=== PATIENT | male | born 1960 | race Caucasian/White ===

== ENCOUNTER 2016-08-09 19:48 | Inpatient (IN) | payer BC ==
[2016-08-09] MEDS ORDERED: methylPREDNISolone NA SUCC 125 MG/2 ML VIAL IVPB ONE (20:39)
--- NOTE | 2016-08-09 20:40 | PDOC ---
History of Present Illness - General History Source: Patient Exam Limitations: No Limitations - History of Present Illness Initial Comments: 08/09/16 20:52 The patient is a 56 year old male with significant past medical history of hypertension and hyperlipidemia who presents to the ED sent by Dr. Pedersen for admission. Patient reports he developed an abscess on the left forearm last week and was placed on bactrim, which he has finished. States going to the Urgent Care today for a sore throat, where he received amoxicillin and after taking the amoxicillin, he developed a diffuse rash. Subsequently, he went to Dr. Cheng office where he was then sent here for admission. States his rash progressively gotten better and he feels flushed. Denies SOB, throat tightness, tongue swelling, or mouth swelling. The patient denies fever, chills, cough, chest pain, and palpitations. The patient denies abdominal pain, nausea, vomiting, and diarrhea. Allergies: amoxicillin as reported today by patient Social History: No alcohol, tobacco, or drug use reported. Past Surgical History: None reported PCP: Dr. Samara Pedersen <Amalia Norwood - Last Filed: 08/09/16 21:54> - General History Source: Patient <VladislavAdria rodriguez - Last Filed: 08/09/16 21:57> - General Chief Complaint: Wound Infection Stated Complaint: PCP ADMIT/RASH Time Seen by Provider: 08/09/16 20:37 Past History <Amalia Norwood - Last Filed: 08/09/16 21:54> - Past Medical History HTN: Yes Hypercholesterolemia: Yes - Psycho/Social/Smoking Cessation Hx Anxiety: No Suicidal Ideation: No Smoking History: Never smoked Hx Alcohol Use: No Drug/Substance Use Hx: No Substance Use Type: None <Adria Valentin - Last Filed: 08/09/16 21:57> - Past Medical History Allergies/Adverse Reactions: Allergies Allergy/AdvReac Type Severity Reaction Status Date / Time No Known Allergies Allergy Verified 08/09/16 19:58 Home Medications: Ambulatory Orders Amoxicillin - [Amoxicillin 875mg Tablet -] 1 tab PO BID 08/09/16 Losartan/Hydrochlorothiazide [Losartan-Hctz 100-12.5 mg Tab] 1 each PO DAILY Rosuvastatin [Crestor -] 5 mg PO HS 08/09/16 Sulfamethoxazole/Trimethoprim [Bactrim Ds -] 1 tab PO BID 08/09/16 Review of Systems - Review of Systems Able to Perform ROS?: Yes Comments:: 08/09/16 20:53 CONSTITUTIONAL: +feeling flushed Absent: fever, no chills, no fatigue EYES: Absent: visual changes ENT: Absent: ear pain, no sore throat CARDIOVASCULAR: Absent: chest pain, no palpitations RESPIRATORY: Absent: cough, no SOB GI: Absent: abdominal pain, no nausea, no vomiting, no constipation, no diarrhea GENITOURINARY: Absent: dysuria, no frequency, no hematuria MUSCULOSKELETAL: Absent: back pain, no arthralgia, no myalgia SKIN: +diffuse rash NEURO: Absent: headache <Amalia Norwood - Last Filed: 08/09/16 21:54> *Physical Exam - Vital Signs Last Vital Signs Temp Pulse Resp BP Pulse Ox 99.7 F H 106 H 16 117/73 99 08/09/16 19:58 08/09/16 19:58 08/09/16 19:58 08/09/16 19:58 08/09/16 19:58 - Physical Exam Comments: 08/09/16 20:53 GENERAL: Well-appearing, well-nourished. No apparent distress. HEENT: Normocephalic, atraumatic. PERRL, EOM intact. Oropharynx is clear. No tongue swelling. No drooling. No hot potato voice. CARDIOVASCULAR: Normal S1, S2. Regular rate and rhythm. PULMONARY: No respiratory distress. No conversational dyspnea. No retractions. Clear to auscultation bilaterally. No stridor. ABDOMEN: Soft, non-distended, non-tender. EXTREMITIES: Normal ROM in all four extremities. No gross deformities. SKIN: Diffuse urticarial rash that starts on left upper extremity and diffuse throughout the body. Firm, healing, crusted over, non fluctuant, lesion on the ventral aspect of the left forearm measuring about 3 cm in circumference that is nontender with mild surrounding erythema. NEUROLOGICAL: No focal neurological deficits. <Amalia Norwood - Last Filed: 08/09/16 21:54> - Vital Signs Last Vital Signs Temp Pulse Resp BP Pulse Ox 99.7 F H 106 H 16 117/73 99 08/09/16 19:58 08/09/16 19:58 08/09/16 19:58 08/09/16 19:58 08/09/16 19:58 <Adria Valentin - Last Filed: 08/09/16 21:57> Heart Score/ECG Review - ECG Impressions Comment:: 08/09/16 21:47 Sinus tachycardia @120bpm Otherwise normal ECG <Amalia Norwood - Last Filed: 08/09/16 21:54> ED Treatment Course - LABORATORY CBC & Chemistry Diagram: 08/09/16 21:10 08/09/16 21:10 <Amalia Norwood - Last Filed: 08/09/16 21:54> - LABORATORY CBC & Chemistry Diagram: 08/09/16 21:10 08/09/16 21:10 <Adria Valentin - Last Filed: 08/09/16 21:57> Medical Decision Making - Medical Decision Making 08/09/16 21:[address] Samara Pedersen (via answering service) at 21:47 Awaiting call back 08/09/16 21:54 Patient's case discussed with Dr. Pedersen at 21:54 <Amalia Norwood - Last Filed: 08/09/16 21:54> - Medical Decision Making 08/09/16 21:56 Dr. Valentin: The scribe's documentation has been prepared under my direction and personally reviewed by me in its entirery. I confirm that the note above accurately reflects all work, treatment, procedures, and medical decision making performed by me. <Adria Valentin - Last Filed: 08/09/16 21:57> *DC/Admit/Observation/Transfer - Attestations Scribe Attestion: 08/09/16 20:53 Documentation prepared by Amalia Norwood, acting as medical unit secretary for Adria Valentin MD/DO. <Amalia Norwood - Last Filed: 08/09/16 21:54> - Discharge Dispostion Admit: Yes <Adria Valentin - Last Filed: 08/09/16 21:57> Diagnosis at time of Disposition: Allergic reaction, Wound infection - Referrals Referrals: Samara Pedersen MD [Primary Care Provider] -
[2016-08-09] MEDS ORDERED: methylPREDNISolone NA SUCC 125 MG/2 ML VIAL ONE (21:13)
[2016-08-09 21:25] LABS: BASOPHIL 0.2 % (0-2.0); EOSINOPHIL 2.6 % (0-4.5); MCH 28.5 pg (25.7-33.7); MCHC 33.7 g/dl (32.0-35.9); MEAN CELL VOLUME 84.6 fl (80-96); MEAN PLT VOLUME 7.2 fl (7.5-11.1); NEUTROPHILS 90.8 % (42.8-82.8); PLATELET COUNT 117 K/MM3 (134-434); RDW 13.6 % (11.9-15.9); WHITE BLOOD COUNT 6.9 K/mm3 (4.0-10.0)
[2016-08-09 22:15] LABS: INR 1.17 (0.82-1.09); PROTHROMBIN TIME (PATIENT) 12.9 SEC (9.98-11.88)
[2016-08-09 22:49] LABS: URINE APPEARANCE CLEAR; URINE BILIRUBIN NEGATIVE (NEGATIVE); URINE BLOOD NEGATIVE (NEGATIVE); URINE COLOR STRAW; URINE GLUCOSE (UA) NEGATIVE (NEGATIVE); URINE KETONE 1+ (NEGATIVE); URINE LEUK ESTERASE NEGATIVE (NEGATIVE); URINE NITRITE NEGATIVE (NEGATIVE); URINE PROTEIN NEGATIVE (NEGATIVE); URINE UROBILINOGEN NEGATIVE E.U./dl (0.2-1.0)
[2016-08-09] MEDS ORDERED: ACETAMINOPHEN 325 MG TABLET (FP) ONE (22:54)
[2016-08-09] MEDS: ACETAMINOPHEN 325 MG TABLET (FP) PO PRN (23:05)
[2016-08-09] MEDS: D5-1/2NS+20 MEQ KCL - 1,000 ML IV SCH (23:05)
[2016-08-10] LABS: ALBUMIN 4.1 g/dl (3.4-5.0); ALK PHOS 49 U/L (45-117); ANION GAP 14 (8-16); BILIRUBIN,TOTAL 0.7 mg/dL (0.2-1.0); CALCIUM 8.4 mg/dL (8.5-10.1); CO2 23 mmol/L (21-32); COCKROFT - GAULT 79.79; CREATININE 1.1 mg/dL (0.7-1.3); GLUCOSE,RANDOM 135 mg/dL (74-106); SGOT/AST 53 U/L (15-37); SGPT/ALT 62 U/L (12-78); TOT PROT 6.7 g/dl (6.4-8.2)
[2016-08-10 00:11] VITALS: BMI 27.3
[2016-08-10] MEDS: methylPREDNISolone NA SUCC 125 MG/2 ML VIAL IVPB SCH ×2 (02:57→09:58)
[2016-08-10 08:19] LABS: ALBUMIN 3.5 g/dl (3.4-5.0); ALK PHOS 45 U/L (45-117); ANION GAP 8 (8-16); BILIRUBIN,TOTAL 0.5 mg/dL (0.2-1.0); CALCIUM 8.1 mg/dL (8.5-10.1); CO2 27 mmol/L (21-32); COCKROFT - GAULT 88.85; GLUCOSE,RANDOM 228 mg/dL (74-106); SGOT/AST 55 U/L (15-37); SGPT/ALT 70 U/L (12-78); TOT PROT 6.2 g/dl (6.4-8.2)
--- NOTE | 2016-08-10 08:53 | HP ---
Admitting History and Physical - Admission History of Present Illness: 56 y/o male with h/o htn and hld who was seen in office with an abscess of forearm that was drained at the [facility] 2 weeks ago he was drainage,swelling and redness and was placed on bactrim. after he finished the course of abx he had sore throat anf fever went to the [facility] and diagnosed with strep and placed on amoxicillin he presented to the office with generalized rash and fever and was sent to the er - Past Medical History Cardiovascular: Yes: HTN, Hyperlipdemia - Smoking History Smoking history: Former smoker Have you smoked in the past 12 months: No If you are a former smoker, when did you quit?: 25 years ago - Alcohol/Substance Use Hx Alcohol Use: Yes (Occassional) Home Medications - Allergies Allergies/Adverse Reactions: Allergies Allergy/AdvReac Type Severity Reaction Status Date / Time No Known Allergies Allergy Verified 08/09/16 19:58 - Home Medications Home Medications: Ambulatory Orders Amoxicillin - [Amoxicillin 875mg Tablet -] 1 tab PO BID 08/09/16 Losartan/Hydrochlorothiazide [Losartan-Hctz 100-12.5 mg Tab] 1 each PO DAILY Rosuvastatin [Crestor -] 5 mg PO HS 08/09/16 Sulfamethoxazole/Trimethoprim [Bactrim Ds -] 1 tab PO BID 08/09/16 Review of Systems - Review of Systems Neck: reports: No Symptoms Cardiovascular: reports: Palpitations. denies: Chest Pain Respiratory: reports: Cough. denies: SOB, SOB on Exertion Gastrointestinal: reports: No Symptoms Genitourinary: reports: No Symptoms Integumentary: reports: Erythema, Rash Neurological: reports: No Symptoms Physical Examination Vital Signs: Vital Signs Temperature 99.4 F 08/10/16 08:12 Pulse Rate 108 H 08/10/16 08:12 Respiratory Rate 18 08/10/16 08:12 Blood Pressure 135/73 08/10/16 08:12 O2 Sat by Pulse Oximetry (%) 96 08/10/16 00:11 Eyes: Yes: Conjunctiva Clear HENT: Yes: Normocephalic Neck: Yes: Supple Cardiovascular: Yes: Tachycardia, S1, S2 Respiratory: Yes: Regular, CTA Bilaterally Gastrointestinal: Yes: Normal Bowel Sounds, Soft. No: Tenderness Edema: No Integumentary: Yes: Erythema (of the face), Rash (generalized) Neurological: Yes: Alert, Oriented, Cran Nerves II-XII Intact. No: Confusion Labs: CBC, BMP 08/10/16 06:00 Imaging - Results X-ray: Report Reviewed Problem List - Problems (1) Allergic reaction Assessment/Plan: maybe delayed reaction to sulfa vs amox hold off on abx steroids and benadryl id consult Code(s): T78.40XA - ALLERGY, UNSPECIFIED, INITIAL ENCOUNTER (2) Wound infection Assessment/Plan: ortho follow up Code(s): T14.8 - OTHER INJURY OF UNSPECIFIED BODY REGION L08.9 - LOCAL INFECTION OF THE SKIN AND SUBCUTANEOUS TISSUE, UNSP (3) HTN (hypertension) Assessment/Plan: hold off on hctz and monitor Code(s): I10 - ESSENTIAL (PRIMARY) HYPERTENSION
[2016-08-10] MEDS: ACETAMINOPHEN 325 MG TABLET (FP) PO PRN ×2 (09:03→18:00)
--- NOTE | 2016-08-10 09:56 | PN ---
Progress Note (short form) - Note Progress Note: ID Consult dictated Selected Entries 08/10/16 08:12 Temperature 99.4 F Pulse Rate 108 H Respiratory 18 Rate Blood Pressure 135/73 Generalized macular eruption facial swelling NO mucous membrane involvement Microbiology Laboratory Tests 08/09/16 08/09/16 08/10/16 21:10 22:16 06:00 WBC 6.9 Hgb 13.3 Plt Count 117 L ESR 10 Random Glucose 228 H D AST 55 H ALT 70 Alkaline Phosphatase 45 Assessment Severe drug eruption Bactrim likely culprit causing fever rash and thrombocytopenia Consider tick related illness but less likely given history Abscess drained [facility] left forearm ? MRSA unsure at this time Plan Document Bactrim allergy only Steroids/ Prednisone Cultures sent Obtain culture [facility] CHRISTIE Problem List - Problems (1) Allergic reaction Code(s): T78.40XA - ALLERGY, UNSPECIFIED, INITIAL ENCOUNTER (2) Fever Code(s): R50.9 - FEVER, UNSPECIFIED
--- NOTE | 2016-08-10 10:09 | PN ---
Progress Note (short form) - Note Progress Note: Pt seen and examined. In summary, he had a left volar forearm abscess which was drained in an Urgent Care center, he states that a significant amount of pus was evacuated. Since then it has steadily improved. He was on Bactrim and then amoxicillin, and now is on IV abx. AVSS WBC only 6.9 Blood Cx Pending PE He now has basically no pain Excellent/Nl ROM No current abscess, no active infection. NVI Imp Resolving/resolved left volar forearm abscess Rec No additional I&D surgery necessary at this time Con't abx as per PMD and ID F/U as needed
--- NOTE | 2016-08-10 10:49 | CONS ---
DATE OF CONSULTATION: HISTORY: This is a 56-year-old male who I am asked to see for evaluation of a pruritic generalized rash involving his face and entire body but sparing the palms and soles. He has a history of hypertension and hyperlipidemia and was in his usual state of health until 10-14 days ago when he developed an abscess on the anterior surface of the left lower forearm. He states that he has had a cyst there for years, which he intermittently squeezes and expresses some purulent drainage. He went to [facility] [place] and states that he had an incision and drainage performed and that a culture was performed. He apparently was given Keflex. He then followed up with [facility] who felt that the wound needed possible coverage for MRSA and switched him to Bactrim. The patient notes taking Bactrim for several days before he began to then experience fevers "every time he took a Bactrim pill". This brought him back for follow up to the [facility] [place] where in the absence of any symptoms or sore throat, a rapid test for streptococcus was performed, which apparently was positive. I assume on this basis the Bactrim was discontinued, and he was switched to amoxicillin. He presented to Dr. Pedersen's office yesterday with a generalized rash and fever and was admitted. He denies any sore throat, watery eyes, joint pains. He does have fever with documented 101 here on admission. His white count is normal, and he is thrombocytopenic. 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 He denies any recall of tick bite. He has no HIV risk factors, though he has not been tested for HIV. PAST MEDICAL HISTORY: As noted above. MEDICATIONS: Losartan, hydrochlorothiazide, Crestor, Bactrim, amoxicillin started August 09. FAMILY HISTORY: Noncontributory. SOCIAL HISTORY: Never smoked. . 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 No substance abuse. REVIEW OF SYSTEMS: Respiratory: No shortness of breath, cough, sore throat. Cardiac: No chest pain, palpitations, heart murmur. Gastrointestinal: No nausea, vomiting, diarrhea, abdominal pain. Genitourinary: No dysuria, hematuria, urinary frequency. Skin: Generalized eruption. PHYSICAL EXAMINATION: General: He is an alert-appearing male. Vital Signs: T-max 101, currently 99.4 with a pulse of 108, blood pressure 135/73, respirations 18. HEENT: Reveals diffuse facial swelling and confluent erythema. Oropharynx without exudate or thrush. No ulcerations noted. No conjunctival injection noted. Neck: Supple. No adenopathy. Lungs: Clear to percussion and auscultation. Heart: S1, S2. Regular rhythm without audible murmur or gallop. Abdomen: Soft and nontender without hepatosplenomegaly. Extremities: Without clubbing, cyanosis, or edema. Skin: A small eschar on the left forearm with some surrounding inflammation but no fluctuance or tenderness present. LABORATORY DATA: White count 6.9, hemoglobin 13.3, platelets 117,000, sedimentation rate 10. BUN 12, creatinine 1, total bilirubin 0.5, AST 55, ALT 70. Urinalysis screening 1+ ketones, otherwise negative. Two sets of blood cultures drawn on admission currently pending. Urine culture pending. Chest x-ray shows no acute pathology. ASSESSMENT: A 56-year-old male presents with fever and generalized eruption. Appears most consistent with an allergic reaction. Recent history of Keflex, Bactrim, and amoxicillin. The latter given most recently on the basis of a rapid stress test positive; however, the patient had no respiratory complaints and specifically no sore throat. I suspect this is a false positive and incidental to the rash. Alternative possibilities include scarlet fever related to streptococcus throat; however, this seems unlikely, and the possibility of a tick-related illness with rash and thrombocytopenia with fever also considered. The patient has no recent recall of tick bites but certainly does have tick exposure. In conclusion, the leading diagnosis here drug eruption and Bactrim would commonly cause this degree of facial swelling and generalized rash, though of course, any of the antibiotics he received could. For right now, would observe him off of antibiotics. Cultures have been taken. We will give him Solu-Medrol 60 mg q.6 hours with a switch to prednisone. I anticipate that he should do well and be discharged on a tapering steroid dose and observe for any further progression of the rash or mucous membrane involvement indicative of Angela-Fernie. MARILU MAYORGA M.D. STEVIE/[id number]
[2016-08-10 11:45] LABS: WHITE BLOOD COUNT 3.9 K/mm3 (4.0-10.0)
[2016-08-10 11:46] LABS: MCH 28.8 pg (25.7-33.7); MCHC 34.4 g/dl (32.0-35.9); MEAN CELL VOLUME 83.6 fl (80-96); MEAN PLT VOLUME 7.2 fl (7.5-11.1); PLATELET COUNT 107 K/MM3 (134-434); RDW 13.8 % (11.9-15.9)
[2016-08-10 11:47] LABS: BASOPHIL 0.1 % (0-2.0); EOSINOPHIL 0.3 % (0-4.5); NEUTROPHILS 89.6 % (42.8-82.8)
--- NOTE | 2016-08-10 13:05 | EKG ---
Test Reason : Blood Pressure : / mmHG Vent. Rate : 106 BPM Atrial Rate : 106 BPM P-R Int : 174 ms QRS Dur : 082 ms QT Int : 324 ms P-R-T Axes : 054 011 028 degrees QTc Int : 430 ms SINUS TACHYCARDIA NONSPECIFIC ST ABNORMALITY ABNORMAL ECG WHEN COMPARED WITH ECG OF 09-AUG-2016 21:41, NO SIGNIFICANT CHANGE WAS FOUND Confirmed by JU MIRANDA MD ([id number]) on 08/10/2016 1:04:57 PM Referred By: ROLA TANNER Confirmed By:JU MIRANDA MD
--- NOTE | 2016-08-10 13:06 | EKG ---
Test Reason : Blood Pressure : / mmHG Vent. Rate : 120 BPM Atrial Rate : 120 BPM P-R Int : 158 ms QRS Dur : 080 ms QT Int : 304 ms P-R-T Axes : 030 008 030 degrees QTc Int : 429 ms SINUS TACHYCARDIA OTHERWISE NORMAL ECG NO PREVIOUS ECGS AVAILABLE Confirmed by JU MIRANDA MD ([id number]) on 08/10/2016 1:06:04 PM Referred By: Confirmed By:JU MIRANDA MD
[2016-08-10] MEDS: methylPREDNISolone NA SUCC 40 MG/1 ML VIAL IVPB SCH ×2 (15:54→22:50)
[2016-08-10] MEDS: ROSUVASTATIN CA 5 MG TABLET (FP) PO SCH (22:51)
[2016-08-10] MEDS: D5-1/2NS+20 MEQ KCL - 1,000 ML IV SCH (22:52)
[2016-08-11] MEDS: methylPREDNISolone NA SUCC 40 MG/1 ML VIAL IVPB SCH ×3 (02:23→15:48)
[2016-08-11] MEDS: D5-1/2NS+20 MEQ KCL - 1,000 ML IV SCH (06:46)
--- NOTE | 2016-08-11 08:25 | PN ---
Progress Note (short form) - Note Progress Note: Ortho Pt seen and examined- improving no fluid collection, dec erythema and swelling, minimal tenderness drug rash resolving, nvi a/p ABx as per ID continue solu-medrol NTD d/w DR. Johnson
--- NOTE | 2016-08-11 10:21 | PN ---
Progress Note, Physician Chief Complaint: Generalized rash History of Present Illness: Patient came in to the hospital after he broke out in generalized rash secondary to exposure to antibiotics (bactrim, keflex and amoxicillin prescribed to him over a 1 week period. Seen by ID, who thinks likely cause is exposure to Sulfa causing the rash. On IV steroid tx. Feeling better overall. Will continue to proceed with current treatment until stable to be discharged. - Current Medication List Current Medications: Active Medications Acetaminophen (Tylenol -) 650 mg PO Q4H PRN PRN Reason: FEVER OR PAIN Last Admin: 08/10/16 18:00 Dose: 650 mg Diphenhydramine HCl (Benadryl Injection -) 25 mg IVPB Q6H-IV SARAH Last Admin: 08/11/16 09:34 Dose: 25 mg Potassium Chloride/Dextrose/Sod Cl (D5-1/2ns+20 Meq Kcl -) 1,000 mls @ 100 mls/ hr IV ASDIR SARAH Last Admin: 08/11/16 06:46 Dose: 100 mls/hr Methylprednisolone Sodium Succinate (Solu-Medrol -) 60 mg IVPB Q6H-IV SARAH Last Admin: 08/11/16 09:45 Dose: 60 mg Rosuvastatin Calcium (Crestor -) 5 mg PO HS SARAH Last Admin: 08/10/16 22:51 Dose: 5 mg - Objective Vital Signs: Vital Signs Temperature 98.9 F 08/11/16 08:39 Pulse Rate 90 08/11/16 08:39 Respiratory Rate 18 08/11/16 08:39 Blood Pressure 134/76 08/11/16 08:39 O2 Sat by Pulse Oximetry (%) 96 08/10/16 20:56 Constitutional: Yes: Well Nourished, No Distress, Calm Cardiovascular: Yes: Regular Rate and Rhythm Respiratory: Yes: Regular Gastrointestinal: Yes: Normal Bowel Sounds Musculoskeletal: Yes: WNL Extremities: Yes: WNL Integumentary: Yes: Rash Neurological: Yes: Alert, Oriented ...Motor Strength: WNL Psychiatric: Yes: WNL Labs: CBC, BMP 08/10/16 06:00 08/10/16 06:00 INR, PTT INR 1.17 (0.82-1.09) H 08/09/16 21:10 Problem List - Problems (1) Allergic reaction Assessment/Plan: Better on IV steroid tx Code(s): T78.40XA - ALLERGY, UNSPECIFIED, INITIAL ENCOUNTER (2) Fever Assessment/Plan: No fever in past 12 hours Code(s): R50.9 - FEVER, UNSPECIFIED (3) HTN (hypertension) Assessment/Plan: Well controlled at this time. Code(s): I10 - ESSENTIAL (PRIMARY) HYPERTENSION (4) Wound infection Assessment/Plan: No Progression of infection Code(s): T14.8 - OTHER INJURY OF UNSPECIFIED BODY REGION L08.9 - LOCAL INFECTION OF THE SKIN AND SUBCUTANEOUS TISSUE, UNSP Assessment/Plan Taper IV Methylprednisolone to 60 mg po TQ8H Observe for any progression of disease D/C home in AM with tapered dose of oral steroids.
--- NOTE | 2016-08-11 13:33 | PN ---
Progress Note, Physician Chief Complaint: ID Rash much better today - Current Medication List Current Medications: Active Medications Acetaminophen (Tylenol -) 650 mg PO Q4H PRN PRN Reason: FEVER OR PAIN Last Admin: 08/10/16 18:00 Dose: 650 mg Diphenhydramine HCl (Benadryl Injection -) 25 mg IVPB Q6H-IV SARAH Last Admin: 08/11/16 09:34 Dose: 25 mg Potassium Chloride/Dextrose/Sod Cl (D5-1/2ns+20 Meq Kcl -) 1,000 mls @ 100 mls/ hr IV ASDIR SARAH Last Admin: 08/11/16 06:46 Dose: 100 mls/hr Methylprednisolone Sodium Succinate (Solu-Medrol -) 60 mg IVPB Q6H-IV SARAH Last Admin: 08/11/16 09:45 Dose: 60 mg Rosuvastatin Calcium (Crestor -) 5 mg PO HS SARAH Last Admin: 08/10/16 22:51 Dose: 5 mg - Objective Vital Signs: Vital Signs Temperature 98.9 F 08/11/16 08:39 Pulse Rate 90 08/11/16 08:39 Respiratory Rate 18 08/11/16 08:39 Blood Pressure 134/76 08/11/16 08:39 O2 Sat by Pulse Oximetry (%) 96 08/10/16 20:56 HENT: Yes: Other (Facial edema less) Cardiovascular: Yes: S1, S2 Respiratory: Yes: WNL, Regular, CTA Bilaterally Gastrointestinal: Yes: Soft. No: Tenderness Extremities: Yes: Other (left forearm eschar dry no cellulitis) Edema: No Integumentary: Yes: Rash Labs: CBC, BMP 08/10/16 06:00 08/10/16 06:00 INR, PTT INR 1.17 (0.82-1.09) H 08/09/16 21:10 Problem List - Problems (1) Allergic reaction Code(s): T78.40XA - ALLERGY, UNSPECIFIED, INITIAL ENCOUNTER (2) Fever Code(s): R50.9 - FEVER, UNSPECIFIED Assessment/Plan Microbiology 08/09/16 22:16 Urine - Urine Clean Catch Urine Culture - Final NO GROWTH OBTAINED 08/09/16 21:10 Blood - Peripheral Venous Blood Culture - Preliminary NO GROWTH OBTAINED AFTER 24 HOURS, INCUBATION TO CONTINUE FOR 4 DAYS. 05/24/17 21:10 Blood - Peripheral Venous Blood Culture - Preliminary NO GROWTH OBTAINED AFTER 24 HOURS, INCUBATION TO CONTINUE FOR 4 DAYS. Laboratory Tests 08/09/16 08/10/16 08/10/16 22:16 06:00 06:00 WBC 3.9 L D Hgb 13.1 Plt Count 107 L ESR 10 AST 55 H Assessment Sulfa allergy with rash fever leukopenia and thrombocytopenia Plan can discharge on oral presdnisone 40 mg taper over a week with out pt f/u
[2016-08-11] MEDS: ROSUVASTATIN CA 5 MG TABLET (FP) PO SCH (21:20)
[2016-08-12] MEDS ORDERED: methylPREDNISolone NA SUCC 40 MG/1 ML VIAL IVPB SCH (02:00)
--- NOTE | 2016-08-12 09:45 | DS ---
Physical Examination Vital Signs: Vital Signs Temperature 98.3 F 08/12/16 06:00 Pulse Rate 69 08/12/16 06:00 Respiratory Rate 16 08/12/16 06:00 Blood Pressure 119/65 08/12/16 06:00 O2 Sat by Pulse Oximetry (%) 96 08/11/16 21:00 Cardiovascular: Yes: Regular Rate and Rhythm Respiratory: Yes: Regular, CTA Bilaterally Gastrointestinal: Yes: Normal Bowel Sounds, Soft Integumentary: Yes: Rash (IMPROVING) Labs: CBC, BMP 08/10/16 06:00 08/10/16 06:00 Discharge Summary Reason For Visit: LOCAL INFECTION OF WOUND Current Active Problems Allergic reaction (Acute) Fever (Acute) HTN (hypertension) (Acute) Wound infection (Acute) Hospital Course: 56 y/o male with h/o htn and hld who was seen in office with an abscess of forearm that was drained at the [facility] 2 weeks ago he was drainage,swelling and redness and was placed on bactrim. after he finished the course of abx he had sore throat anf fever went to the [facility] and diagnosed with strep and placed on amoxicillin he presented to the office with generalized rash and fever and was sent to the er - Past Medical History Cardiovascular: Yes: HTN, Hyperlipdemia - Smoking History Smoking history: Former smoker Have you smoked in the past 12 months: No If you are a former smoker, when did you quit?: 25 years ago - Problems (1) Allergic reaction Assessment/Plan: Better on IV steroid tx--TO PO Code(s): T78.40XA - ALLERGY, UNSPECIFIED, INITIAL ENCOUNTER (2) Fever Assessment/Plan: No fever in past 12 hours Code(s): R50.9 - FEVER, UNSPECIFIED (3) HTN (hypertension) Assessment/Plan: Well controlled at this time. Code(s): I10 - ESSENTIAL (PRIMARY) HYPERTENSION (4) Wound infection Assessment/Plan: No Progression of infection Code(s): T14.8 - OTHER INJURY OF UNSPECIFIED BODY REGION L08.9 - LOCAL INFECTION OF THE SKIN AND SUBCUTANEOUS TISSUE, UNSP Assessment/Plan DC IV Methylprednisolone to 60 mg po Observe for any progression of disease D/C home with tapered dose of oral steroids. Condition: Improved - Instructions Referrals: Samara Pedersen MD [Primary Care Provider] - 1 Week Disposition: HOME - Home Medications Comprehensive Discharge Medication List: Ambulatory Orders Rosuvastatin [Crestor -] 5 mg PO HS 08/09/16 Prednisone [Deltasone -] 60 mg PO DAILY #40 tablet 08/12/16
[2016-08-12] MEDS ORDERED: predniSONE 20 MG TABLET (UD) PO SCH (10:00)
[2016-08-12 11:12] LABS: MCH 28.7 pg (25.7-33.7); MCHC 33.6 g/dl (32.0-35.9); MEAN CELL VOLUME 85.4 fl (80-96); MEAN PLT VOLUME 7.2 fl (7.5-11.1); PLATELET COUNT 153 K/MM3 (134-434); WHITE BLOOD COUNT 7.8 K/mm3 (4.0-10.0)
[2016-08-12 11:27] LABS: ALBUMIN 3.7 g/dl (3.4-5.0); ANION GAP 8 (8-16); CALCIUM 8.7 mg/dL (8.5-10.1); CO2 27 mmol/L (21-32); COCKROFT - GAULT 111.06; CREATININE 0.8 mg/dL (0.7-1.3); GLUCOSE,RANDOM 269 mg/dL (74-106); SGOT/AST 33 U/L (15-37); SGPT/ALT 82 U/L (12-78)
[2016-08-12 11:28] LABS: ALK PHOS 51 U/L (45-117); BILIRUBIN,TOTAL 0.5 mg/dL (0.2-1.0); TOT PROT 6.5 g/dl (6.4-8.2)
[2016-08-12 11:47] VITALS: BP 125/75; PULSE 84; TEMP 98.5
== END 2016-08-12 14:58 | disposition home or self-care (01) | DRG 607 ==
LOC: JER 19:48 → SUPCPDRO 19:48 → JERBED 21:55 → J7W 23:30
PROVIDERS: ADMIT Family Medicine; ATTEND Family Medicine
DX: L25.8 Unspecified contact dermatitis due to other agents (principal); L02.512 Cutaneous abscess of left hand; T36.0X5A Adverse effect of penicillins, initial encounter; I10 Essential (primary) hypertension; E78.5 Hyperlipidemia, unspecified; R50.9 Fever, unspecified; D72.818 Other decreased white blood cell count; D69.6 Thrombocytopenia, unspecified
CPT/HCPCS: 36415; 71020-TC; 80053; 81003; 83605; 85025; 85610; 85651; 87040; 87086; 93005; 93010; 99284-25